=== PATIENT | female | born 1980 | race Caucasian/White ===

== ENCOUNTER 2017-12-04 20:27 | Emergency (ER) | payer MEDICAID ==
[~2017-12-04] VITALS: Ht 162.6 cm; Wt 149.7 kg
[2017-12-04] MEDS ORDERED: LISINOPRIL-HCT1 EAC1 PO (20:45)
[2017-12-04] MEDS ORDERED: CITALOPRAM HBR40 MG PO (20:45)
[2017-12-04] MEDS ORDERED: PREVACID30 MG PO (23:08)
--- NOTE | 2017-12-06 07:08 | EKG ---
[facility] [address] [facility] [place], [place] [address] Signed Sinus tachycardia Possible Left atrial enlargement Borderline ECG No previous ECGs available Confirmed by KRISTEN JETER MD [id number] on 12/06/2017 7:08:50 AM Electronically Signed By: KRISTEN JETER MD 12/06/17 0708 PATIENT NAME: IRENE CRAWFORD Electrocardiogram DATE OF : 78 PHYSICIAN: KRISTEN JETER MD REPORT #: [id number] REPORT IS CONFIDENTIAL AND NOT TO BE RELEASED WITHOUT AUTHORIZATION
== END 2017-12-04 23:19 | disposition home or self-care (01) ==
LOC: ED 20:27
DX: R07.9 Chest pain, unspecified (principal); I10 Essential (primary) hypertension; J45.909 Unspecified asthma, uncomplicated; F32.9 Major depressive disorder, single episode, unspecified; Z88.0 Allergy status to penicillin; Z88.2 Allergy status to sulfonamides; Z79.899 Other long term (current) drug therapy
CPT/HCPCS: 36415; 71046; 80053; 84484; 85025; 93005; 93010; 99284